=== PATIENT | female | born 1970 | race African-American/Black ===

== ENCOUNTER → 2018-04-16 | Outpatient (CLI) | payer BC | END | disposition home or self-care (01) | LOC: M.RAD 10:00 | DX: M53.3 Sacrococcygeal disorders, not elsewhere classified (principal) ==

== ENCOUNTER 2018-12-17 07:15 | Emergency (ER) | payer BC ==
[~2018-12-17] VITALS: Ht 165.1 cm; Wt 127.0 kg
[2018-12-17] MEDS ORDERED: GLUCOPHAGE1000 MG PO (07:39)
[2018-12-17] MEDS ORDERED: LOSARTAN-HCTZ1 EACH PO (07:39)
[2018-12-17] MEDS ORDERED: LIPITOR10 MG PO (07:40)
[2018-12-17] MEDS ORDERED: PIOGLITAZONE15 MG (07:40)
[2018-12-17] MEDS ORDERED: PROAIR RESPICL90 MCG INH (07:41)
[2018-12-17 08:13] LABS: INFLUENZA B ANTIGEN None Detected (None Detect)
[2018-12-17 09:00] VITALS: BP 120/58
== END 2018-12-17 09:00 | disposition home or self-care (01) ==
LOC: M.ERS 07:15
PROVIDERS: Emergency Medicine Emergency Medical Services
DX: J10.1 Influenza due to other identified influenza virus with other respiratory manifestations (principal); I10 Essential (primary) hypertension; E11.9 Type 2 diabetes mellitus without complications; Z88.5 Allergy status to narcotic agent; Z88.6 Allergy status to analgesic agent

== ENCOUNTER 2019-07-09 07:22 | Emergency (ER) | payer BC ==
[~2019-07-09] VITALS: Ht 165.1 cm; Wt 108.9 kg
[~2019-07-09 07:22] MED LIST: GLUCOPHAGE1000 MG PO; LIPITOR10 MG PO; LOSARTAN-HCTZ1 EACH PO; PIOGLITAZONE15 MG; PROAIR RESPICL90 MCG INH
[2019-07-09 08:50] VITALS: BP 166/98
== END 2019-07-09 08:51 | disposition home or self-care (01) ==
LOC: M.ERS 07:22
DX: R04.0 Epistaxis (principal); E11.9 Type 2 diabetes mellitus without complications; I10 Essential (primary) hypertension; Z88.5 Allergy status to narcotic agent; Z88.6 Allergy status to analgesic agent

== ENCOUNTER 2021-06-01 11:43 | Emergency (ER) | payer BC ==
[~2021-06-01] VITALS: Ht 167.6 cm; Wt 70.8 kg
[2021-06-01] MEDS ORDERED: ZPAK PO (12:49)
[2021-06-01] MEDS ORDERED: DEXAMETHASONE 44 M1 PO (12:49)
[2021-06-01 13:00] VITALS: BP 136/90
== END 2021-06-01 13:00 | disposition home or self-care (01) ==
LOC: M.ERS 11:43
DX: U07.1 COVID-19 (principal); I10 Essential (primary) hypertension; E11.9 Type 2 diabetes mellitus without complications; Z88.6 Allergy status to analgesic agent; Z88.5 Allergy status to narcotic agent